=== PATIENT | female | born 1980 | race Caucasian/White ===

== ENCOUNTER 2022-02-11 00:08 | Emergency (ER) | payer MEDICAID, SELFPAY ==
[2022-02-11 00:13] VITALS: BP 121/73; PULSE 96; RESP 20; TEMP 36.7; O2SAT 99; BMI 22.6
[2022-02-11 00:27] VITALS: BMI 22.6
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
[2022-02-11 00:31] VITALS: BP 116/77; PULSE 100; O2SAT 100
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
--- NOTE | 2022-02-11 00:52 | [facility].EDLOEX ---
ED Disposition Clinical Impression: Ankle sprain and strain Disposition: Home, Self-Care Condition on Discharge: Good Instructions: DI for Ankle Sprain Additional Instructions: wt bearing limited and see pcp and podiatry Prescriptions: Meloxicam 7.5 mg PO DAILY #10 tab Transmission Status: Pending to [id number] Referrals: Provider,Referral, [Primary Care Provider] - Heidy Aragon DPM [Staff Physician] - - Critical Care Critical Care Time: No Attestation: On 02/11/22, the high probability of a clinically significant, sudden or life threatening deterioration of the following system(s) required my full and direct attention, intervention and personal management. The time I documented below is in addition to time spent performing reported procedures but includes the following listed in this critical care notation. Medical Decision Making - Medical Records Medical records reviewed: Yes: I reviewed the patient's medical records. - Favian Inquiry Pt receiving controlled substance: No Vital Signs: 02/11/22 00:13 Temperature 98.0 F Temperature Source Oral Pulse Rate [Right] 96 H Respiratory Rate 20 Blood Pressure [Right Arm] 121/73 Blood Pressure Mean [Right Arm] 89 Blood Pressure Source [Right Arm] Automatic Cuff 02 Sat by Pulse Oximetry 99 Oxygen Delivery Method Room Air - Radiology Data #1 Image(s): Ankle, Foot/Toes Image Reviewed: Yes I have reviewed radiologist's interpretation Preliminary Findings: Abnormal Medical Decision Narrative: prev surg with sts and no def fx - pt declined ct at this time - will f/u with podiatry and pcp Lower Extremity Injury HPI - General Chief Complaint: Extremity Injury, Lower Stated Complaint: AO 2 wks ago injury to right ankle Time Seen by Provider: 02/11/22 00:52 Mode of Arrival: Family Vehicle Source of Information: Patient, Medical Record Limitations: No Limitations Description of Symptoms (Recalled from ER Triage Doc. by RN): Pt c/o R ankle pain since tripping over a curb almost 2 weeks ago. Pt states she has been taking tylenol and motrin and icing the limb without improvement. Reports this ankle has screws in it from several years ago. Edema noted to outside and anterior ankle. Pulses and VINYL INSTALLER WNL. - History of Present Illness HPI Narrative: rt ankle with injury about 2 weeks ago - has prev orif and has pain and swelling complaint: ankle injury, foot injury Onset (ago): day(s) Injury: Right: ankle, foot Type of Injury: eversion Place: home Severity: moderate Context: walking Associated symptoms: able to partially bear weight Other symptoms: none - Related Data Previous Rx's Medication Instructions Recorded Meloxicam 7.5 mg PO DAILY #10 tab 02/11/22 Allergies Allergy/AdvReac Type Severity Reaction Status Date / Time No Known Allergies Allergy Verified 02/11/22 00:26 [facility] History - Hepatitis A Screen Attestation statement:: This patient has been screened for Hepatitis A risk factors. I have reviewed the patient's past medical history: Yes ROS Obtained: Yes All systems reviewed & no additional complaints - Constitutional Constitutional: Denies fever(s) - Eyes Eyes: Denies change in vision - ENT Ears, Nose, Mouth, and Throat: Denies sore throat - Cardiovascular Cardiovascular: Denies chest pain - Respiratory Respiratory: Denies cough - Gastrointestinal Gastrointestingal: Denies: abdominal pain - Genitourinary Female Genitourinary: Denies hematuria - Musculoskeletal Musculoskeletal: Reports as per HPI, Reports joint pain, Reports joint swelling, Reports limited range of motion - Integumentary/Breasts Skin/Breast: Denies rash - Neurologic Neurologic: Denies focal weakness, Denies seizure-like activity Physical Exam - General General appearance: alert - Head Head exam: normocephalic - Eye Eye exam: Present: PERRL, EOMI - ENT ENT exam: Present: mucous membranes moist
[2022-02-11 01:48] VITALS: BP 118/75; PULSE 90; RESP 18; TEMP 36.8; O2SAT 98
== END 2022-02-11 01:57 | disposition home or self-care (01) ==
PROVIDERS: Emergency Provider Emergency Medicine
DX: S93.401A Sprain of unspecified ligament of right ankle, initial encounter (principal); W22.8XXA Striking against or struck by other objects, initial encounter; Z96.661 Presence of right artificial ankle joint
CPT/HCPCS: 73610; 73630; 99283